=== PATIENT | male | born 1990 | race Caucasian/White ===

== ENCOUNTER 2022-06-05 17:25 | Emergency (ER) | payer BC, SELFPAY ==
--- NOTE | ~2022-06-05 | XR_ITS ---
EXAMINATION: XR foot RT min 3V DATE: 06/05/2022 17:58 INDICATION: Right foot injury. TECHNIQUE: 4 views of right foot were obtained. COMPARISON: None. FINDINGS: Bone alignment is normal. No fracture. Joint spaces are well maintained. IMPRESSION: 1. Normal right foot. Reviewed, dictated and finalized at location A. IMPRESSION: 1. Normal right foot.
[2022-06-05 17:42] VITALS: BP 135/70; PULSE 93; RESP 18; TEMP 36.4; O2SAT 99
--- NOTE | 2022-06-05 18:44 | ED.LOWEXIN ---
HPI - Extremity Injury (Lower) General Chief Complaint: Extremity Injury, Lower Stated Complaint: R. foot injury Time Seen by Provider: 06/05/22 18:39 Source: patient Mode of arrival: ambulatory Limitations: no limitations History of Present Illness HPI Narrative: Patient presents to the emergency department for a crush injury earlier today. Reports a metal coil roll fell on his right foot. He has had swelling and pain since the injury. He has not taken any pain medication. Denies decreased range of motion or numbness. Related Data Allergies Allergy/AdvReac Type Severity Reaction Status Date / Time cefaclor [From Ceclor] Allergy Unknown Verified 06/05/22 18:45 Review of Systems Review of Systems: CONSTITUTIONAL: Denies fever MUSCULOSKELETAL: Reports joint pain, and myalgia. NEUROLOGIC: Denies numbness All systems reviewed & are unremarkable except as noted in HPI and below PMFSH Past Medical History Medical History (Updated 06/05/22 @ 18:47 by Irene Cain PA-C) History of epilepsy Social History Social History (Updated 06/05/22 @ 18:47 by Irene Cain PA-C) Smoking status: Never smoker Exam Narrative: GENERAL: Well-appearing, well-nourished, and in no acute distress. HEAD: Normocephalic, atraumatic. EYES: EOMI. EXTREMITIES: Normal range of motion. No edema or obvious deformity. Normal peripheral pulses. Normal sensation SKIN: Warm, dry, no rash. NEURO: No focal deficits. Alert and oriented x3. PSYCH: Normal mood and affect Course Vital Signs Vital signs: Vital Signs Temperature 97.6 F 06/05/22 17:42 Pulse Rate 93 06/05/22 17:42 Respiratory Rate 18 06/05/22 17:42 Blood Pressure 135/70 06/05/22 17:42 Pulse Oximetry 99 06/05/22 17:42 Oxygen Delivery Room Air 06/05/22 17:42 Temperature 97.6 F 06/05/22 17:42 Pulse Rate 93 06/05/22 17:42 Respiratory Rate 18 06/05/22 17:42 Blood Pressure 135/70 06/05/22 17:42 Pulse Oximetry 99 06/05/22 17:42 Oxygen Delivery Room Air 06/05/22 17:42 MDM - Extremity Injury (Lower) MDM Narrative Medical decision making narrative: Patient presents to the emergency department for right foot crush injury earlier today. Patient is neurovascularly intact. Right foot x-ray without acute osseous abnormalities. Patient and family updated on case findings. Instructed to rest, ice and take [id number] pain medication as needed. He is to follow-up with primary care doctor. He was given warnings to return to the ER Imaging Data Radiologist's impression: ITS Impressions Foot X-Ray 06/05/22 17:59 IMPRESSION: 1. Normal right foot. Critical Care Time Critical Care Time Critical Care Time: No Discharge Plan Discharge Clinical Impression: Crush injury of right foot Qualifiers: Encounter type: initial encounter Qualified Code(s): S97.81XA - Crushing injury of right foot, initial encounter Patient Disposition: Home, Self-Care Condition: Stable Instructions: Crush Injury (ED) Additional Instructions: Return to the ER if you experience fever, redness and swelling of your leg, numbness, your foot feels cold, or any other symptoms that are concerning to you Rest. Elevate. Ice to the area. Tylenol or ibuprofen as needed for pain Follow-up with your primary care doc Follow-up/Referrals: PHYSICIAN,SUPERVISING ARCHITECT [Primary Care Provider] - Zachary Bryant MD [Physician] - 1 Week
[2022-06-05] MEDS: IBUPROFEN 600 MG TABLET PO (18:49)
== END 2022-06-05 19:17 | disposition home or self-care (01) ==
PROVIDERS: Emergency Provider Family Medicine; PCP Physician Assistant
DX: S97.81XA Crushing injury of right foot, initial encounter (principal); G40.909 Epilepsy, unspecified, not intractable, without status epilepticus; W20.8XXA Other cause of strike by thrown, projected or falling object, initial encounter
CPT/HCPCS: 73630; 99283; A9270

== ENCOUNTER 2025-06-29 16:17 | Emergency (ER) | payer OTHER, SELFPAY ==
[2025-06-29] VITALS (8 sets, daily range): BP systolic 123–162; BP diastolic 69–83; PULSE 83–91; RESP 13–24; TEMP 36.9; O2SAT 96–98
--- NOTE | ~2025-06-29 | CT_ITS ---
EXAMINATION: CTA brain carotid DATE: 06/29/2025 21:31 CDT INDICATION: Headache. History of oligodendroglioma TECHNIQUE: Computed tomographic angiography (CTA) of the head was performed without and with 100 mL Omnipaque-350 intravenous contrast. CTA of the neck was performed with intravenous contrast. The dose-length product was 1782.82 mGy-cm. Maximum intensity projection and volume rendered 3D-reconstructions were created by the technologist on a separate workstation. COMPARISON: None. FINDINGS: HEAD CTA: There is encephalomalacia right frontal lobe, likely related to prior resection of brain tumor. No ventriculomegaly or midline shift. Basilar cisterns are patent. There is mucosal thickening of the paranasal sinuses. Mastoids are pneumatized. Right frontal craniotomy defect noted. The anterior, middle and posterior cerebral arteries are within normal limits. No occlusion, aneurysm or significant stenosis. NECK CTA: The origins of the vertebral and carotid arteries are widely patent. No significant atherosclerotic change. No significant stenosis or dissection. No occlusion. Lung apices are unremarkable. Thyroid gland unremarkable. No lymphadenopathy. IMPRESSION: 1: Chronic encephalomalacia right frontal lobe, likely attributable to prior resection of brain tumor. 2: Unremarkable CT angiogram of the head and neck. Reviewed, dictated and finalized at location O. IMPRESSION: 1: Chronic encephalomalacia right frontal lobe, likely attributable to prior re section of brain tumor. 2: Unremarkable CT angiogram of the head and neck.
--- NOTE | 2025-06-29 19:30 | PC.NURSE ---
Received report from SUKHDEEP Moffett for cont. of care. Pt lying on stretcher respirations even and unlabored. Pt c/o 9/10 headache, and dizziness x 2 weeks. Pt placed on cont. cardiac and pulse oximeter monitoring. Refer to JOSE for medication administration.
[2025-06-29] MEDS: ACETAMINOPHEN 500 MG TABLET 1000 MG PO (19:37)
--- NOTE | 2025-06-29 19:37 | ED.GENADULT ---
HPI - General Adult General Chief complaint: Headache Stated complaint: migraine Time Seen by Provider: 06/29/25 18:46 History of Present Illness HPI narrative: This is a 35-year-old male with history of oligodendroglioma, migraines and epilepsy presenting for headache. For the last 16 days patient has had a total headache that extends from the top of his neck over the top of his head. This is different from his typical headaches which are pounding on the right side of his head where his brain cancer was located. There was no identified trigger. He does notice that it is worse after intercourse. No visual changes. No neurologic deficits. He has tried Imitrex with no relief. Patient is supposed to get an MRI once yearly due to his history of brain cancer and has not had one in 8 years. Related Data Allergies Allergy/AdvReac Type Severity Reaction Status Date / Time cefaclor (From [facility]) Allergy Unknown Verified 06/05/22 18:45 [facility] [place] Past Medical History Medical History (Updated 06/29/25 @ 21:50 by Wilber Santiago MD) History of epilepsy Social History Social History (Updated 06/05/22 @ 18:47 by Irene Cain PA-C) Smoking status: Never smoker Exam Narrative: APPEARANCE: No apparent distress. Head: atraumatic. EYES: EOMI, NOSE: Atraumatic NECK: Trachea midline RESPIRATORY: No increased rate of breathing CARDIOVASCULAR: RRR, ABDOMINAL: Non-distended MUSCULOSKELETAl: No obvious deformities NEURO: Alert. Cranial nerves 2-12 grossly intact. Sensation light touch, motor function cerebellar function intact for 4 extremities. Gait exam was normal. SKIN:: Warm, dry. Normal color PSYCHIATRIC: Normal affect Course Vital Signs Vital signs: Vital Signs Pulse Rate 91 06/29/25 18:39 Respiratory Rate 18 06/29/25 18:39 Blood Pressure 158/83 H 06/29/25 18:39 Pulse Oximetry 98 06/29/25 18:39 Temperature 98.5 F 06/29/25 19:20 Pulse Rate 85 06/29/25 19:49 Respiratory Rate 18 06/29/25 19:49 Blood Pressure 162/81 H 06/29/25 19:49 Pulse Oximetry 98 06/29/25 19:49 Oxygen Delivery Room Air 06/29/25 19:49 Medical Decision Making [facility] Narrative Medical decision making narrative: -Course: 35-year-old male with history of brain cancer presenting for a headache times 16 days. Vital signs are stable. He is well appearing. His neurologic exam is normal. Given his history of brain cancer imaging has been ordered. CTA showed encephalomalacia at the site of his prior surgery but no other findings. On re-evaluation patient is feeling much better. He is requesting discharge. He will be discharged follow-up with primary care physician. He has been encouraged to get his MRI done on an outpatient basis. Given return precautions. -DDX includes but is not limited to: Brain cancer, migraine, occipital neuralgia, tension headache -Co-morbidities complicating care: History of brain cancer, migraines, polyps Vital Signs Vital Signs: Vital Signs Pulse Rate 91 06/29/25 18:39 Respiratory Rate 18 06/29/25 18:39 Blood Pressure 158/83 H 06/29/25 18:39 Pulse Oximetry 98 06/29/25 18:39 Temperature 98.5 F 06/29/25 19:20 Pulse Rate 85 06/29/25 19:49 Respiratory Rate 18 06/29/25 19:49 Blood Pressure 162/81 H 06/29/25 19:49 Pulse Oximetry 98 06/29/25 19:49 Oxygen Delivery Room Air 06/29/25 19:49 Lab Data 06/29/25 21:07 Labs: Lab Results 06/29/25 Range/Units 21:07 Creatinine 1.20 (0.8-1.5) mg/dL Estim Creat Clear Calc 108 ml/min Estimated GFR > 60 (59 - ) Discharge Plan Discharge Clinical Impression: Headache Patient Disposition: Home Condition: Stable Instructions: Antibiotic Form, Acute Headache (ED) Additional Instructions: You were seen in the ED for a headache. Please use Motrin Tylenol for your pain. Use Imitrex at the start of your headache to try to abort the headache. If you develop severe headache, visual changes or any neurologic deficits please return to the ER for re-evaluation. Patient Language: Par[place]ayan Follow-up/Referrals: Chato,MINDA Zamorano [Primary Care Provider, Unknown]
[2025-06-29] MEDS: PROCHLORPERAZINE EDISYLATE 10 MG/2 ML VIAL IM (19:45)
[2025-06-29 21:08] LABS: Estimated CRCL calculation 108 ml/min; Estimated Glomerular Filt Rate > 60
== END 2025-06-29 22:36 | disposition home or self-care (01) ==
PROVIDERS: Emergency Provider Emergency Medicine; PCP Physician Assistant
DX: R51.9 Headache, unspecified (principal)
CPT/HCPCS: 70496; 70498; 96372; 96374; 99284; A9270; J0780; J1200; Q9967